=== PATIENT | male | born 1990 | race African-American/Black ===

== ENCOUNTER 2016-11-08 15:42 | Outpatient (CLI) | payer OTHER ==
[~2016-11-08] VITALS: Ht 175.3 cm; Wt 102.3 kg
[2016-11-08 15:53] VITALS: BP 144/81; PULSE 74; RESP 16; Ht 175.3 cm; Wt 102.3 kg
[2016-11-08] MEDS ORDERED: ASPI-664 PO (15:58)
[2016-11-08] MEDS ORDERED: DILT120C77 PO (15:58)
--- NOTE | 2016-11-08 16:11 | PN ---
Date/Time of Note Date/Time of Note DATE: 11/08/16 TIME: 16:00 Outpatient Progress Note Chief Complaint Palpitation/A. fib/ HPI Palpitation/patient was recently hospitalized with a palpitation, no palpitation seems to discharge, patient feeling fine, New-onset of A. fib/no palpitations or syncope, patient was hospitalized with a A. fib with rapid ventricular rhythm, patient was put on Cardizem CD 120 mg daily patient is control, patient heart rate was up to 150, now heart rate is 72 ,, Review of Systems Const: No Fever, no chills, no Wt. loss, no Fatigue, normal appetite, no diaphoresis. Eyes: No pain, no discharge, no redness, no visual change, no foreign body. ENT: No pain, no bleeding, no congestion, no sore throat, no dysphagia, no discharge or rhinitis. Lymph: No adenopathy, no tender nodes, no lymphedema. Resp: No SOB, no cough, no sputum, no wheezing, no chest pain. CV: No chest pain, no palpitaions, no DE SOUZA, no PND, no edema. GI: Normal appetite, no pain, no nausea, no vomiting, no diarrhea, no blood, no constipation. : No frequency, no urgency, no dysuria, no hematuria, no flank pain, no discharge, no bleeding. Musc: No bone/joint pain, no back pain, no neck pain, no knee pain, no restricted ROM. Skin: No rash, no skin lesions, no erythema, no laceration, no bruising, no pruritus. Neuro: No GALDAMEZ, no dizziness, no syncope, no seizure, no focal-weakness. Endo: No polyuria, no polydypsia, no dry-skin, no temp-intolerance. Psych: No hallucinations, no depression, no anxiety, no suicidal ideation. Ext: No edema, no pain, no ulcer, no weakness. Physical Exam Vital Signs Date Time Temp Pulse Resp B/P Pulse Ox O2 Delivery O2 Flow Rate FiO2 11/08/16 15:53 98.3 74 16 144/81 100 Room Air General Appearance: A 26 year-old male who appears well-developed, well- nourished, in no acute distress. HEENT: Head normocephalic, atraumatic. Pupils equal, round, reactive to light and accommodate. Sclerae are no jaundice. Nasal turbinates pink without erythema or nasal discharge. Mucous membranes pink and moist without lesions. Oropharynx clear without any exudate or discharge. NECK: Supple. Trachea midline, No thyromegaly, No cervical lymphadenopathy, No mass, No carotid bruits, No JVD, Carotid pulses 2+ bilaterally. PULMONARY: Clear to auscultaion bilaterally, No retractions, Chest expansion symmetric bilaterally, no rales, no ronchi, no dulness on percussion. CARDIAC: Normal SI and S2, Regular rate and rythm, no murmur, gallop, or rub. GASTROINTESTINAL: Abdomen is soft, non-tender, Non Rigid, No distention, Positive bowel sounds x4 quadrants, Liver normal. SKIN: Warm, dry, no rash, no bruise, no echmosis. EXTREMITIES: Bilateral lower extremities normal, no edema, no phlabitus, pulse palpable, no contracture. MUSCULOSKELETAL: Spine Normal, Non-tender, Normal range of motion, No swelling, no deformity, no clubbing, or cyanosis, the patient has no edema to bilateral lower extremities, dorsalis pedis pulses palpable bilaterally. NEUROLOGIC: The patient is awake, alert, oriented, responding to yes/no questions appropriately, moving all extremities, cranial nerve intact, normal strenght, normal power, normal coordination, normal gait. Allergies Coded Allergies: No Known Drug Allergies (Verified Allergy, Unknown, 11/08/16) PMH A. fib with high ventricular response/palpitation Social Hx No smoking or drinking, no drugs, Family Hx Noncontributory Assessment/Plan Impression A. fib with a fast ventricular response/palpitation resolved Plan Patient had new-onset of A. fib with a rapid ventricular response, patient was recently hospital is, patient was put on cardio exam ER, 120 mg, patient is able to control, Patient education done, Patient to follow with the primary care physician, Patient is more out of the medication, will refill cardio exam ER 120 mg daily # 30 If any is palpitations or any symptoms appear to call us or call primary physician's or ER, Medications Home Meds Reported Medications Aspirin* (Aspirin* EC) 81 Mg Tablet.dr, 81 MG PO DAILY, TAB 11/08/16 Diltiazem Hcl* (Cardizem CD*) 120 Mg Cap.sr.24h, 120 MG PO DAILY, #30 CAP 11/08/16 LYNDSEY HENSON MD Nov 08, 2016 16:10
== END 2016-11-08 16:55 | disposition home or self-care (01) ==
LOC: DCC 15:42
PROVIDERS: ATTEND Internal Medicine
DX: I48.91 Unspecified atrial fibrillation (principal); R00.2 Palpitations
CPT/HCPCS: G0463

== ENCOUNTER 2016-11-22 14:18 | Outpatient (CLI) | payer OTHER ==
[~2016-11-22] VITALS: Ht 175.3 cm; Wt 98.0 kg
[2016-11-22 14:14] VITALS: BP 144/84; PULSE 75; RESP 16; Ht 175.3 cm; Wt 98.0 kg
[~2016-11-22 14:18] MED LIST: ASPI-664 PO; DILT120C77 PO
--- NOTE | 2016-11-22 15:16 | PN ---
Date/Time of Note Date/Time of Note DATE: 11/22/16 TIME: 14:20 Outpatient Progress Note Chief Complaint Palpitations/history of A. fib HPI Palpitations/patient was recently admitted with a palpitation, patient has not had any palpitations recently, patient on medication, A. fib/patient was admitted with A. fib with a rapid patient, ventricular response, patient on Cardizem CD, patient's heart rate controlled, no side effect of medication, Review of Systems Const: [No Fever, no chills, no Wt. loss, no Fatigue, normal appetite, no diaphoresis.] Eyes: [No pain, no discharge, no redness, no visual change, no foreign body.] ENT: [No pain, no bleeding, no congestion, no sore throat, no dysphagia, no discharge or rhinitis.] Lymph: [No adenopathy, no tender nodes, no lymphedema.] Resp: [No SOB, no cough, no sputum, no wheezing, no chest pain.] CV: [No chest pain, no palpitaions, no DE SOUZA, no PND, no edema.] GI: [Normal appetite, no pain, no nausea, no vomiting, no diarrhea, no blood, no constipation.] : [No frequency, no urgency, no dysuria, no hematuria, no flank pain, no discharge, no bleeding.] Musc: [No bone/joint pain, no back pain, no neck pain, no knee pain, no restricted ROM.] Skin: [No rash, no skin lesions, no erythema, no laceration, no bruising, no pruritus.] Neuro: [No GALDAMEZ, no dizziness, no syncope, no seizure, no focal-weakness.] Endo: [No polyuria, no polydypsia, no dry-skin, no temp-intolerance.] Psych: [No hallucinations, no depression, no anxiety, no suicidal ideation.] Ext: [No edema, no pain, no ulcer, no weakness.] Physical Exam General Appearance: A [26] year-old [male] [who appears well-developed, well- nourished, in no acute distress.] HEENT: [Head normocephalic, atraumatic. Pupils equal, round, reactive to light and accommodate. Sclerae are no jaundice. Nasal turbinates pink without erythema or nasal discharge. Mucous membranes pink and moist without lesions. Oropharynx clear without any exudate or discharge.] NECK: [Supple. Trachea midline, No thyromegaly, No cervical lymphadenopathy, No mass, No carotid bruits, No JVD, Carotid pulses 2+ bilaterally.] PULMONARY: [Clear to auscultaion bilaterally, No retractions, Chest expansion symmetric bilaterally, no rales, no ronchi, no dulness on percussion.] CARDIAC: [Normal SI and S2, Regular rate and rythm, no murmur, gallop, or rub.] GASTROINTESTINAL: [Abdomen is soft, non-tender, Non Rigid, No distention, Positive bowel sounds x4 quadrants, Liver normal.] SKIN: [Warm, dry, no rash, no bruise, no echmosis.] EXTREMITIES: [Bilateral lower extremities normal, no edema, no phlabitus, pulse palpable, no contracture.] MUSCULOSKELETAL: [Spine Normal, Non-tender, Normal range of motion, No swelling , no deformity, no clubbing, or cyanosis, the patient has no edema to bilateral lower extremities, dorsalis pedis pulses palpable bilaterally.] NEUROLOGIC: [The patient is awake, alert, oriented, responding to yes/no questions appropriately, moving all extremities, cranial nerve intact, normal strenght, normal power, normal coordination, normal gait.] Allergies Coded Allergies: No Known Drug Allergies (Verified Allergy, Unknown, 11/08/16) PMH No change Social Hx No change Family Hx No change Assessment/Plan Impression Palpitations resolved/A. fib resolved on medication, Plan Patient has changed his diet, patient is vegan now, patient advised to take medication on a regular basis, Cardizem CD 120 mg daily #30 tablets Patient to follow with the primary care physician, Medications Home Meds Reported Medications Aspirin* (Aspirin* EC) 81 Mg Tablet., 81 MG PO DAILY, TAB 11/08/16 Diltiazem Hcl* (Cardizem CD*) 120 Mg Cap.sr.24h, 120 MG PO DAILY, #30 CAP 11/08/16 LYNDSEY HENSON MD Nov 22, 2016 15:16
== END 2016-11-22 16:29 | disposition home or self-care (01) ==
LOC: DCC 14:18
PROVIDERS: ATTEND Internal Medicine
DX: R00.2 Palpitations (principal); I48.91 Unspecified atrial fibrillation